=== PATIENT | male | born 1980 | race Caucasian/White ===

== ENCOUNTER 2025-05-07 17:38 | Emergency (ER) | payer OTHER, SELFPAY ==
[2025-05-07 17:45] VITALS: BP 144/74; PULSE 89; TEMP 37.1; O2SAT 99; BMI 26.4
--- NOTE | 2025-05-07 21:28 | ED_ITS ---
HPI HPI - General Adult General Chief complaint: Abdominal Pain Stated complaint: BULDGE THAT COMES OUT IN GUT EVERY ONCE IN AWHILE Time Seen by Provider: 05/07/25 21:25 Source: patient Mode of arrival: walk-in History of Present Illness HPI narrative: left inguinal hernia onset over a year ago. Not sure what it is and finally decided to have it checked . No vomiting. He is able to push it back in. Does have problem with constipation and has been taking MOM for the past year. Related Data Home Medications ?Medication ?Instructions ?Recorded ?Confirmed No Known Home Medications 05/07/2504/14 Allergies Allergy/AdvReac Type Severity Reaction Status Date / Time No Known Drug Allergies Allergy Verified 05/07/25 17:44 Review of Systems ROS Status of ROS 10 or more systems reviewed and unremark able except as noted in history and below PFSH PFSH Social History Little interest or pleasure in doing things: not at all Feeling down, depressed, or hopeless: not at all Exam Constitutional Vital Signs, click to edit/add: Last Vital Signs Temp 98.7 F 05/07/25 17:45 Pulse 89 05/07/25 17:45 Resp 16 05/07/25 17:45 BP 144/74 H 05/07/25 17:45 Pulse Ox 99 05/07/25 17:45 O2 Del Method Room Air 05/07/25 17:45 Common normals: no apparent distress, average body habitus, oriented x3, no limitations, healthy appearing, alert and well nourished [facility] Common normals: normocephalic and head/scalp atraumatic Eye Common normals: PERRL, EOMs intact bilaterally and conjunctivae normal Respiratory Common normals: normal respiratory effort, no retractions, no use of accessory muscles and clear to auscultation bilaterally Cardio Common normals: regular rate, regular rhythm, S1 normal heart sound and S2 normal heart sound GI Common normals: Normal to inspection, nondistended, normoactive bowel sounds present, soft to palpation and non-tender Other: left direct inguinal hernia. soft Extremity Common normals: normal to inspection and full ROM Neuro Common normals: oriented x3, CN's II-XII intact bilaterally, moves all extremities and no focal motor deficits Psych Appearance: grossly normal Course Vital Signs Vital signs: Vital Signs Temperature 98.7 F 05/07/25 17:45 Pulse Rate 89 05/07/25 17:45 Respiratory Rate 16 05/07/25 17:45 Blood Pressure 144/74 H 05/07/25 17:45 Pulse Oximetry 99 05/07/25 17:45 Oxygen Delivery Method Room Air 05/07/25 17:45 Temperature 98.7 F 05/07/25 17:45 Pulse Rate 89 05/07/25 17:45 Respiratory Rate 16 05/07/25 17:45 Blood Pressure 144/74 H 05/07/25 17:45 Pulse Oximetry 99 05/07/25 17:45 Oxygen Delivery Method Room Air 05/07/25 17:45 Medical Decision Making MDM Narrative Medical decision making narrative: presents with bulge left inguinal for over a year and also has constipation. Patient informed he has a hernia. It can be reduced. He is referred to gen. surgery and also advised to use stool softner and miralax for his constipation Discharge Plan Discharge Chief Complaint: Abdominal Pain Clinical Impression: Constipation, Direct left inguinal hernia Patient Disposition: Home, Self-Care Prescriptions / Home Meds: No Action No Known Home Medications Print Language: Venezuelan Instructions: Constipation (ED), Inguinal Hernia (ED) Additional Instructions: use stool softner and miralax for constipation. Call general surgeon to schedule follow up in his/her office
--- OUTSIDE RECORDS SUMMARY | 2025-05-07 21:43 | XMS_ITS | Clinical Summary ---
Author Organization [employer] [facility] tem Address [facility] [id number] [place] [address] Care Team Providers Care Sew Out Operator Name Role Phone No Pcp, No Pcp Primary Care Provider Unavailabl e Allergies No known active allergies Medications No known medications Social History Tobacco UseTypesPacks/DayYears UsedDateSmoking Tobacco: NeverSmokeless Tobacco: Never Tobacco Cessation:Counseling Given: Not Answered Alcohol UseStandard Drinks/WeekCommentsNever0 (1 standard drink = 0.6 oz pure alcohol)ChildcareAnswerDate WojiwhsmTyioklwyoYluitfz94/12/2019EmploymentAnswer Date GyxpgtnnBsyymrjshtKcjacqc43/12/2019Hunger ScreeningAnswerDate Recorded Within the past 12 months we worried whether our food would run out before we got money to buy more.Never True01/19/2023Within the past 12 months the food we bought just didn't last and we didn't have money to get more.Never True 01/19/2023Sex and Gender InformationValueDate RecordedSex Assigned at BirthMale 12/02/2022 5:55 PM EDTLegal EluDzet5508/01/2015 11:08 AM ESTGender IdentityMale 12/02/2022 5:55 PM EDTSexual OrientationChoose not to /22/2023 5:55 PM EDT Last Filed Vital Signs Vital SignReadingTime TakenCommentsBlood Izhgmoqy581/8101/19/2023 4:52 AM EDT Rkpzk045701/19/2023 4:52 AM BQDYuzdpbboepy70.1 ??C (98.8 ??F)01/19/2023 3:27 AM EDTRespiratory Hlky6074 4:37 PM EDTOxygen Leajvxdkyt37%01/19/2023 4:52 AM EDTInhaled Oxygen Concentration--Wwuesg914.9 kg (240 lb)01/19/2023 3:27 AM JVTFzldoi771 cm (6' 2 )01/19/2023 3:27 AM EDTBody Mass Index30.8101/19/2023 3:27 AM EDT Plan of Treatment Health MaintenanceDue DateLast DoneCommentsDepression Gfyrhhtbs68/26/1994Tobacco Uitnzeegy07/26/1994DTaP,Tdap and Td Vaccines (1 - Tdap)2001Adult BMI Gvqibtnvv47Influenza Oyqpeza7402/11/2025 Medical Devices Not on file Insurance Care Teams Team MemberRelationshipSpecialtyStart DateEnd Date [place], [place] [id number] [facility]
--- OUTSIDE RECORDS SUMMARY | 2025-05-07 21:43 | XMS_ITS | Clinical Summary ---
Author Organization [facility] Address [address] [place] [address] Care Team Providers Care Manager Pharmacy Name Role Phone None, Provided MD Primary Care Provider Unavaila ble Allergies No known active allergies Medications No known medications Active Problems ProblemNoted DateDiagnosed DateClosed bicondylar fracture of right tibial zgvttqm1710/25/2022losed fracture of right tibial plateau, initial encounter 10/18/2022 Social History Tobacco UseTypesPacks/DayYears UsedDateSmoking Tobacco: NeverSmokeless Tobacco: Never Tobacco Cessation:Counseling Given: Not Answered Alcohol UseStandard Drinks/WeekCommentsNot Currently0 (1 standard drink = 0.6 oz pure alcohol)Humiliation, Afraid, Rape, and Kick questionnaireAnswerDate RecordedWithin the last year, have you been afraid of your partner or ex-partner?No01/07/2023Within the last year, have you been humiliated or emotionally abused in other ways by your partner or ex-partner?No01/07/2023 Within the last year, have you been kicked, hit, slapped, or otherwise physically hurt by your partner or ex-partner?No01/07/2023Within the last year, have you been raped or forced to have any kind of sexual activity by your part ner or ex-partner?No01/07/2023Overall Financial Resource Strain (CARDIA)Answer Date RecordedHow hard is it for you to pay for the very basics like food, housing, medical care, and heating?Not hard at all10/25/2022HQ-2AnswerDate RecordedPatient Health Questionnaire-2 Cbzzg286UT Safety & Environment AnswerDate RecordedWithin the last year, have you been afraid of your partner or ex-partner?No01/07/2023Within the last year, have you been humiliated or emotionally abused in other ways by your partner or ex-partner?No01/07/2023 Within the last year, have you been kicked, hit, slapped, or otherwise physically hurt by your partner or ex-partner?No01/07/2023Within the last year, have you been raped or forced to have any kind of sexual activity by your part ner or ex-partner?No01/07/2023hysically or Sexually AbusedNot on file01/07/2023 TransportationAnswerDate RecordedIn the past 12 months, has lack of transportation kept you from medical appointments or from getting medications?No 10/25/2022Lack of Transportation (Non-Medical)Not on file10/25/2022Housing Stability Vital SignAnswerDate RecordedUnable to Pay for Housing in the Last YearNot on file10/25/2022Number of Places Lived in the Last YearNot on file 10/25/2022In the last 12 months, was there a time when you did not have a steady place to sleep or slept in [place] (including now)?No10/25/2022Hunger Vital SignAnswerDate RecordedWithin the past 12 months, you worried that your food would run out before you got the money to buymore.Never true10/25/2022Ran Out of Food in the Last YearNot on file10/25/2022Sex and Gender InformationValueDate RecordedSex Assigned at BirthNot on fileLegal MtfTxul7110/18/2022 3:28 PM EDT Gender IdentityNot on fileSexual OrientationNot on file Last Filed Vital Signs Vital SignReadingTime TakenCommentsBlood Xyvftkam222/9008 12:53 PM EDT Uzhpu2027 12:53 PM VQEQusbikxegym59.8 ??C (98.2 ??F)01/15/2023 12:53 PM EDTRespiratory Zpgg5285 12:53 PM EDTOxygen Nxnrhfmbzc98%01/15/2023 12:53 PM EDTInhaled Oxygen Concentration--Doylqs883 kg (240 lb)02/18/2023 9:11 AM EDT Blsulj814.4 cm (6' 1 )01/15/2023 12:53 PM EDTBody Mass Index31.66001/15/2023 12:53 PM EDT Plan of Treatment Health MaintenanceDue DateLast DoneCommentsDepression Yltphhffw13/26/1994 Varicella Vaccines (1 of 2 - 13+ 2-dose series)1995Hepatitis B Vaccines (1 of 3 - 19+ 3-dose series)2001Adult Btmijwt8802/06/2004HPV Vaccines (1 - 3- dose SCDM series)2009COVID-19 Vaccine ( - season)2025 Influenza Vaccine (#1)2025Zoster Vaccines (1 of 2)02/06/2032HIB Vaccines Aged OutNo longer eligible based on patient's age to complete this topicIPV VaccinesAged OutNo longer eligible based on patient's age to complete this topic Meningococcal B VaccineAged OutNo longer eligible based on patient's age to complete this topicMeningococcal VaccineAged OutNo longer eligible based on patient's age to complete this topicPneumococcal Vaccine: Pediatrics (0 to 5 Years) and At-Risk Patients (6 to 64 Years)Aged OutNo longer eligible based on patient's age to complete this topicRotavirus VaccinesAged OutNo longer eligible based on patient's age to complete this topic Medical Devices ImplantedTypeAreaManufacturerDevice IdentifierShelf Expiration DateModel / Serial / LotPlatePlateLeft: FacePlate,T,Lcp,Rt Ang,8-H,67mm - [id number] Implanted:Qty: 1 on 10/25/2022 by [facility]: Jaziel/ESTHER [id number] / / Plate 4h/Rt 93m,3.5m - [id number] Implanted:Qty: 1 on 10/25/2022 by Anuj [facility]inton [facility]: Jaziel/ESTHER [id number] / / Adapt-Plate,2.7m,12 Hole,97m - [id number] Implanted:Qty: 1 on 10/25/2022 by Anuj Hinton [facility]Right: TibiaJOHNSON/ESTHER [id number] / / Screw,Cortex,Slf-Tap,3.5x75mm - [id number] Implanted:Qty: 1 on 10/25/2022 [facility]: TibiaJOHNSON/ESTHER [id number] / / Screw/Slf-Tpng/Strdrv/75m,3.5m - [id number] Implanted:Qty: 1 on 10/25/2022 by [facility]: TibiaJOHNSON/ESTHER [id number] / / Screw,2.7m,T8,50m - [id number] Implanted:Qty: 1 on 10/25/2022 by [facility]: TibiaJOHNSON/ESTHER [id number] / / Screw,2.7m,T8,60m - [id number] Implanted:Qty: 2 on 10/25/2022 by [facility]uj [facility]inton [facility]: TibiaJOHNSON/ESTHER [id number] / / Screw,Cortex,Selftap,3.5x34mm - [id number] Implanted:Qty: 1 on 10/25/2022 by [facility]uj [facility]inton [facility]: TibiaJOHNSON/ESTHER [id number] / / Screw,Cortex,Selftap,3.5x36mm - [id number] Implanted:Qty: 1 on 10/25/2022 by [facility]uj [facility]inton [facility]: TibiaJOHNSON/ESTHER [id number] / / Screw,Cortex,Selftap,3.5x40mm - [id number] Implanted:Qty: 1 on 10/25/2022 by [facility]uj [facility]inton [facility]: TibiaJOHNSON/ESTHER [id number] / / Screw,Cortex,Selftap,3.5x50mm - [id number] Implanted:Qty: 1 on 10/25/2022 by [facility]uj [facility]: TibiaJOHNSON/ESTHER [id number] / / Screw,Cortex,Selftap,3.5x38mm - [id number] Implanted:Qty: 2 on 10/25/2022 by [facility]uj [facility]: TibiaJOHNSON/ESTHER [id number] / / Insurance Advance Directives * Full Code (Latest Code Status on File) Date ActivatedDate InactivatedComments10/25/2022 11:37 AM10/26/2022 4:44 PM * Full Code Date ActivatedDate InactivatedComments10/18/2022 9:06 PM10/19/2022 8:39 PM Care Teams Team MemberRelationshipSpecialtyStart DateEnd Date None, MD Charleen PCP - General01/07/23
--- OUTSIDE RECORDS SUMMARY | 2025-05-07 21:43 | XMS_ITS | Clinical Summary ---
Author Organization [facility] Address [address], [address] [place] [address] Care Team Providers Care Comic Writer Name Role Phone Unavailable Primary Care Provider Unavailabl e Allergies No known active allergies Medications MedicationSigDispense QuantityRefillsLast FilledStart DateEnd DateStatus lacosamide (VIMPAT) 100 MG TABS tablet Indications:Seizures (HCC)Take 1 tablet by mouth 2 times daily for 30 days. Max Daily Amount: 200 mg 60 tablet 01/24/2023ctive risperiDONE (RISPERDAL) 1 MG tablet Take 1 tablet by mouth 2 times daily 60 tablet ctive ibuprofen (ADVIL;MOTRIN) 600 MG tablet Take 1 tablet by mouth 3 times daily as needed for Pain 21 tablet 01/24/2023ctive Active Problems ProblemNoted DateDiagnosed QsffEkospklm34/10/0966Kyvreeole25/10/2023 Social History Tobacco UseTypesPacks/DayYears UsedDateSmoking Tobacco: Never AssessedAUDIT-C AnswerDate RecordedQ1: How often do you have a drink containing alcohol?Never 01/19/2023Q2: How many drinks containing alcohol do you have on a typical day when you are drinking?Patient does not drink01/19/2023Q3: How often do you have six or more drinks on one occasion?Never01/19/2023Interpersonal Safety Domain Source: IP Abuse ScreeningAnswerDate RecordedRead-Only, Retired: Physical Abuse Yzvmef0501/19/2023Read-Only, Retired: Verbal ImyjpKdbgtt74/09/2023Read-Only, Retired: Emotional pyncaXwlbbv85/09/2023Read-Only, Retired: Financial Abuse Zyulff9901/19/2023Read-Only, Retired: Sexual welkaUdlrpr68/09/2023Sex and Gender InformationValueDate RecordedSex Assigned at BirthNot on fileLegal SexMale 07/23/2012 11:31 AM ESTGender IdentityNot on fileSexual OrientationNot on file Last Filed Vital Signs Vital SignReadingTime TakenCommentsBlood Rxxjzxop415/7901/24/2023 12:01 PM EDT Jqjay842501/24/2023 12:01 PM YDPXsgdjhojuik80.7 ??C (98.1 ??F)01/24/2023 12:01 PM EDTRespiratory Bwcm155201/24/2023 12:01 PM EDTOxygen Yoljtaoajy98%01/24/2023 12:01 PM EDTInhaled Oxygen Concentration--Lpxdfu409.4 kg (280 lb 13.9 oz)01/20/2023 11:00 PM PIBEmnbii019 cm (6' 2 )01/19/2023 11:51 PM EDTBody Mass Index36.06 01/19/2023 11:51 PM EDT Plan of Treatment Health MaintenanceDue DateLast DoneCommentsDepression Yxjjim1902/05/1994Varicella vaccine (1 of 2 - 13+ 2-dose series)1995HIV qdyrrt0902/05/1997Hepatitis C zgzhfi4302/06/2000DTaP/Tdap/Td vaccine (1 - Tdap)2001Hepatitis B vaccine (1 of 3 - 19+ 3-dose series)02/05/20015836Wmbjdt78/26/2022Flu vaccine (#1)01/11/2025 COVID-19 Vaccine ( - season)2025HPV vaccine (No Doses Required) CompletedHepatitis A vaccineAged OutNo longer eligible based on patient's age to complete this topicHib vaccineAged OutNo longer eligible based on patient's age to complete this topicMeningococcal (ACWY) vaccineAged OutNo longer eligible based on patient's age to complete this topicMeningococcal B vaccineAged OutNo longer eligible based on patient's age to complete this topicPneumococcal 0-49 years VaccineAged OutNo longer eligible based on patient's age to complete this topicPolio vaccineAged OutNo longer eligible based on patient's age to complete this topic Insurance Advance Directives * Full Code (Latest Code Status on File) Date ActivatedDate InactivatedComments01/20/2023 5:18 AM01/24/2023 7:19 PM
--- NOTE | 2025-05-07 21:45 | PC.NURSE ---
i gave this patient verbal and written discharge orders along with 2 general surgeon names to follow up with, this patient voices yes to understanding these discharge orders and to follow up with 1 of these surgeons this patient shows no signs of distress
== END 2025-05-07 21:44 | disposition home or self-care (01) ==
PROVIDERS: Emergency Provider Internal Medicine
DX: K40.90 Unilateral inguinal hernia, without obstruction or gangrene, not specified as recurrent (principal); K59.00 Constipation, unspecified
CPT/HCPCS: 99281

== ENCOUNTER 2025-05-28 09:39 | Outpatient (OUT) | payer OTHER, SELFPAY ==
--- OUTSIDE RECORDS SUMMARY | 2025-05-28 09:44 | XMS_ITS | Clinical Summary ---
Author Organization [employer] [facility] tem Address [facility] [id number] [place] [address] Care Team Providers Care Family Practice Nurse Practitioner Name Role Phone No Pcp, No Pcp Primary Care Provider Unavailabl e Allergies No known active allergies Medications No known medications Social History Tobacco UseTypesPacks/DayYears UsedDateSmoking Tobacco: NeverSmokeless Tobacco: Never Tobacco Cessation:Counseling Given: Not Answered Alcohol UseStandard Drinks/WeekCommentsNever0 (1 standard drink = 0.6 oz pure alcohol)ChildcareAnswerDate XuyguausPpeaiwjyuZddmxew05/12/2019EmploymentAnswer Date IopmpautBhgyevftsfNngdune19/12/2019Hunger ScreeningAnswerDate Recorded Within the past 12 months we worried whether our food would run out before we got money to buy more.Never True01/19/2023Within the past 12 months the food we bought just didn't last and we didn't have money to get more.Never True 01/19/2023Sex and Gender InformationValueDate RecordedSex Assigned at BirthMale 12/02/2022 5:55 PM EDTLegal FwoNjne3608/01/2015 11:08 AM ESTGender IdentityMale 12/02/2022 5:55 PM EDTSexual OrientationChoose not to uqtlhagb63/22/2023 5:55 PM EDT Last Filed Vital Signs Vital SignReadingTime TakenCommentsBlood Xxcfuxhx254/8101/19/2023 4:52 AM EDT Lapvd354701/19/2023 4:52 AM RELJlycglqhsun07.1 ??C (98.8 ??F)01/19/2023 3:27 AM EDTRespiratory Huur9995 4:37 PM EDTOxygen Yplgmgmhfo64%01/19/2023 4:52 AM EDTInhaled Oxygen Concentration--Fprgen138.9 kg (240 lb)01/19/2023 3:27 AM NVRXewncu958 cm (6' 2 )01/19/2023 3:27 AM EDTBody Mass Index30.8101/19/2023 3:27 AM EDT Plan of Treatment Health MaintenanceDue DateLast DoneCommentsDepression Wlgrsxqof19/26/1994Tobacco Preykewoe45/26/1994DTaP,Tdap and Td Vaccines (1 - Tdap)2001Adult BMI Oqgthwnix61Influenza Taizyqe9102/11/2025 Medical Devices Not on file Insurance Care Teams Team MemberRelationshipSpecialtyStart DateEnd Date [place], [place] [address] [facility]
--- OUTSIDE RECORDS SUMMARY | 2025-05-28 09:44 | XMS_ITS | Clinical Summary ---
Author Organization [facility] Address [address], [address] [place] [address] Care Team Providers Care Police Commissioner Name Role Phone Unavailable Primary Care Provider [...] 21 tablet 01/24/2023ctive Active Problems ProblemNoted DateDiagnosed XbhgBigktdrd12/10/8138Ziqgeasfa78/10/2023 Social History Tobacco UseTypesPacks/DayYears UsedDateSmoking Tobacco: Never AssessedAUDIT-C AnswerDate RecordedQ1: How often do you have a drink containing alcohol?Never 01/19/2023Q2: How many drinks containing alcohol do you have on a typical day when you are drinking?Patient does not drink01/19/2023Q3: How often do you have six or more drinks on one occasion?Never01/19/2023Interpersonal Safety Domain Source: IP Abuse ScreeningAnswerDate RecordedRead-Only, Retired: Physical Abuse Qvfami0401/19/2023Read-Only, Retired: Verbal GiwdwLydelg26/09/2023Read-Only, Retired: Emotional xpxkgGisnhj03/09/2023Read-Only, Retired: Financial Abuse Diggvv7901/19/2023Read-Only, Retired: Sexual rjyzfAexddu83/09/2023Sex and Gender InformationValueDate RecordedSex Assigned at BirthNot on fileLegal SexMale 07/23/2012 11:31 AM ESTGender IdentityNot on fileSexual OrientationNot on file Last Filed Vital Signs Vital SignReadingTime TakenCommentsBlood Ddilwaap408/7901/24/2023 12:01 PM EDT Xmecp911201/24/2023 12:01 PM GADHgcgkyhcpil83.7 ??C (98.1 ??F)01/24/2023 12:01 PM EDTRespiratory Edph033001/24/2023 12:01 PM EDTOxygen Dyafirvmxv45%01/24/2023 12:01 PM EDTInhaled Oxygen Concentration--Ptckng728.4 kg (280 lb 13.9 oz)01/20/2023 11:00 PM KIHPvejuc102 cm (6' 2 )01/19/2023 11:51 PM EDTBody Mass Index36.06 01/19/2023 11:51 PM EDT Plan of Treatment Health MaintenanceDue DateLast DoneCommentsDepression Iooazw0202/05/1994Varicella vaccine (1 of 2 - 13+ 2-dose series)1995HIV apgzew6802/05/1997Hepatitis C llihmy0802/06/2000DTaP/Tdap/Td vaccine (1 - Tdap)2001Hepatitis B vaccine (1 of 3 - 19+ 3-dose series)02/05/20013146Vqkkgh08/26/2022Flu vaccine (#1)01/11/2025 COVID-19 Vaccine ( - season)2025HPV [...]
--- OUTSIDE RECORDS SUMMARY | 2025-05-28 09:44 | XMS_ITS | Clinical Summary ---
Author Organization [facility] Address [address] [place] [address] Care Team Providers Care Architectural Design Lecturer Name Role Phone None, Provided MD Primary Care Provider Unavaila ble Allergies No known active allergies Medications No known medications Active Problems ProblemNoted DateDiagnosed DateClosed bicondylar fracture of right tibial emejtgw0610/25/2022losed fracture of right tibial plateau, initial encounter [...] heating?Not hard at all10/25/2022HQ-2AnswerDate RecordedPatient Health Questionnaire-2 Xykmb097UT Safety & Environment AnswerDate RecordedWithin the last [...] steady place to sleep or slept in pack[place]elter (including now)?No10/25/2022Hunger Vital SignAnswerDate RecordedWithin the past 12 months, you worried that your food would run out before you got the money to buymore.Never true10/25/2022Ran Out of Food in the Last YearNot on file10/25/2022Sex and Gender InformationValueDate RecordedSex Assigned at BirthNot on fileLegal WbkIjsu9210/18/2022 3:28 PM EDT Gender IdentityNot on fileSexual OrientationNot on file Last Filed Vital Signs Vital SignReadingTime TakenCommentsBlood Huqytdnm154/9008 12:53 PM EDT Rodml2649 12:53 PM PGBPkrwpqbyzdp51.8 ??C (98.2 ??F)01/15/2023 12:53 PM EDTRespiratory Yetc7929 12:53 PM EDTOxygen Dpnoguuffi19%01/15/2023 12:53 PM EDTInhaled Oxygen Concentration--Oqfqqb313 kg (240 lb)02/18/2023 9:11 AM EDT Vbyujn371.4 cm (6' 1 )01/15/2023 12:53 PM EDTBody Mass Index31.66001/15/2023 12:53 PM EDT Plan of Treatment Health MaintenanceDue DateLast DoneCommentsDepression Zcssjgckj88/26/1994 Varicella Vaccines (1 of 2 - 13+ 2-dose series)1995Hepatitis B Vaccines (1 of 3 - 19+ 3-dose series)2001Adult Svfrdhd6102/06/2004HPV Vaccines (1 - 3- dose SCDM series)2009COVID-19 [...] / Serial / LotPlatePlateLeft: FacePlate,T,Lcp,Rt Ang,8-H,67mm - [id number] Implanted:Qty: 1 [facility] 10[facility]25[facility]20[facility] Jaziel/ESTHER [id number] / / Plate 4h/Rt 93m,3.5m - [id number] Implanted:Qty: 1 on 10/25/2022 [facility] Jaziel/ESTHER [id number] / / Adapt-Plate,2.7m,12 Hole,97m - [id number] Implanted:Qty: 1 on 10/25/2022 [facility]: TibiaJOHNSON/ESTHER [id number] / / Screw,Cortex,Slf-Tap,3.5x75mm - [id number] Implanted:Qty: 1 on 10/25/2022 [facility] TibiaJOHNSON/ESTHER [id number] / / Screw/Slf-Tpng/Strdrv/75m,3.5m - [id number] Implanted:Qty: 1 on 10/25/2022 [facility]: TibiaJOHNSON/ESTHER ORTHO02.127.175 / / Screw,2.7m,T8,50m - [id number] Implanted:Qty: 1 on 10/25/2022 [facility]: TibiaJOHNSON/ESTHER [id number] / / Screw,2.7m,T8,60m - [id number] Implanted:Qty: 2 on 10/25/2022 by [facility]: TibiaJOHNSON/ESTHER [id number] / / Screw,Cortex,Selftap,3.5x34mm - [id number] Implanted:Qty: 1 on 10/25/2022 by [facility]: TibiaJOHNSON/ESTHER [id number] / / Screw,Cortex,Selftap,3.5x36mm - [id number] Implanted:Qty: 1 on 10/25/2022 by [facility]: TibiaJOHNSON/ESTHER [id number] / / Screw,Cortex,Selftap,3.5x40mm - [id number] Implanted:Qty: 1 on 10/25/2022 by [facility]: TibiaJOHNSON/ESTHER [id number] / / Screw,Cortex,Selftap,3.5x50mm - [id number] Implanted:Qty: 1 on 10/25/2022 by [facility]: TibiaJOHNSON/ESTHER [id number] / / Screw,Cortex,Selftap,3.5x38mm - [id number] Implanted:Qty: 2 on 10/25/2022 by [facility]: TibiaJOHNSON/ESTHER [id number] / / Insurance Advance Directives * Full Code (Latest Code Status on File) Date ActivatedDate InactivatedComments10/25/2022 11:37 AM10/26/2022 4:44 PM * Full Code Date ActivatedDate InactivatedComments10/18/2022 9:06 PM10/19/2022 8:39 PM Care Teams Team MemberRelationshipSpecialtyStart DateEnd Date None, MD Charleen PCP - General01/07/23
== END 2025-05-28 09:40 | disposition home or self-care (01) ==
LOC: PST 09:40
PROVIDERS: Visit Provider Surgery
DX: Z01.818 Encounter for other preprocedural examination (principal); K40.90 Unilateral inguinal hernia, without obstruction or gangrene, not specified as recurrent

== ENCOUNTER 2025-06-12 08:55 | Day surgery (SDC) | payer OTHER, SELFPAY ==
[2025-05-28 10:19] VITALS: BP 127/68; PULSE 92; TEMP 36.6; O2SAT 99; BMI 27.1
[2025-06-12] VITALS (12 sets, daily range): BP systolic 106–150; BP diastolic 68–106; PULSE 64–84; TEMP 36.5–36.9; O2SAT 96–100; BMI 27.0
--- NOTE | 2025-06-12 | OP_ITS ---
OPERATION DATE: 06/12/2025 PREOPERATIVE DIAGNOSIS: Reducible left inguinal hernia. POSTOPERATIVE DIAGNOSIS: Reducible left inguinal hernia with indirect left inguinal hernia and cord lipoma. PROCEDURE: Left inguinal herniorrhaphy with mesh patch insertion. SURGEON: Clark Uribe M.D. ANESTHESIA: General with laryngeal mask airway, as well as left sided TAP block. ESTIMATED BLOOD LOSS: Less than 10 mL. INDICATIONS AND CONSENT: Patient is a 45-year-old male with a history of enlarging, symptomatic, reducible left inguinal hernia. Indications, risks, benefits, alternatives of proceeding with herniorrhaphy with mesh insertion were explained extensively to the patient, including the risks of bleeding, infection, scarring, pain, nerve injury, testicular injury, blood clot, pulmonary embolus, heart attack, anesthetic complication, need for further surgery or mesh removal. All of his questions were answered. Informed consent was obtained. PROCEDURE: Patient brought to the operating room, placed in the supine position. General anesthesia was induced. Left sided TAP block was performed. The patient was prepped and draped in the usual sterile fashion. Left groin incision was made in the area of the skin crease, above the external inguinal ring, carried down through subcutaneous tissue using sharp dissection as well as electrocautery. Ramiro?s fascia was divided. The external oblique was opened along the direction of its fibers, down to the external inguinal ring. It was noted to be attenuated. Cord structures were mobilized and retracted with the [place] drain. There was noted to be a small indirect sac, as well as a cord lipoma that was freed up from the cord structures, all the up to the internal ring, where it was then reduced. The enlarged internal ring was then closed using a 2-0 Prolene suture. The wound was irrigated. There was no evidence of direct inguinal hernia. A ProGrip patch was then used and was placed in the floor of the inguinal canal. The arms were placed around the cord structures. It was then secured circumferentially using interrupted 3-0 Vicryl sutures. Care was taken to avoid undue tension on the cord structures. The nerves were out of the area of the sutures. The wound was then irrigated. There was good hemostasis. The external oblique was then closed with a running 3-0 Vicryl suture. It was noted to be very attenuated. 10 cc of 0.25% Marcaine was then injected into the subcutaneous tissues. Ramiro?s fascia was re-approximated with interrupted 3-0 Monocryl suture. The skin was then closed with a running 4-0 subcuticular Monocryl suture, as well as skin glue. Sponge and needle counts were correct x2 per nursing personnel. The patient tolerated procedure well, was extubated and sent to recovery room in good condition. CC: Patient?s Family Physician NASRA
--- OUTSIDE RECORDS SUMMARY | 2025-06-12 09:00 | XMS_ITS | Clinical Summary ---
Author Organization [facility] tem Address [id number] [place] [address] Care Team Providers Care Broadcast Correspondent Name Role Phone No Pcp, No Pcp Primary Care Provider Unavailabl e Allergies No known active allergies Medications No known medications Social History Tobacco UseTypesPacks/DayYears UsedDateSmoking Tobacco: NeverSmokeless Tobacco: Never Tobacco Cessation:Counseling Given: Not Answered Alcohol UseStandard Drinks/WeekCommentsNever0 (1 standard drink = 0.6 oz pure alcohol)ChildcareAnswerDate BtgrzkkdXflrqfdeoKqgzfck48/12/2019EmploymentAnswer Date XfsnbgtwTezdocvfcqWghkhgj21/12/2019Hunger ScreeningAnswerDate Recorded Within the past 12 months we worried whether our food would run out before we got money to buy more.Never True01/19/2023Within the past 12 months the food we bought just didn't last and we didn't have money to get more.Never True 01/19/2023Sex and Gender InformationValueDate RecordedSex Assigned at BirthMale 12/02/2022 5:55 PM EDTLegal AmvWryw3708/01/2015 11:08 AM ESTGender IdentityMale 12/02/2022 5:55 PM EDTSexual OrientationChoose not to hxpezbrb46/22/2023 5:55 PM EDT Last Filed Vital Signs Vital SignReadingTime TakenCommentsBlood Lauslgjr531/8101/19/2023 4:52 AM EDT Xhbop048801/19/2023 4:52 AM WFMYdmrwheqyts10.1 ??C (98.8 ??F)01/19/2023 3:27 AM EDTRespiratory Plna2094 4:37 PM EDTOxygen Hkoxhpnhgb65%01/19/2023 4:52 AM EDTInhaled Oxygen Concentration--Buxjbw084.9 kg (240 lb)01/19/2023 3:27 AM NRSVudeus999 cm (6' 2 )01/19/2023 3:27 AM EDTBody Mass Index30.8101/19/2023 3:27 AM EDT Plan of Treatment Health MaintenanceDue DateLast DoneCommentsDepression Pephelrya70/26/1994Tobacco Kaezbsfdw34/26/1994DTaP,Tdap and Td Vaccines (1 - Tdap)2001Adult BMI Tzaejaizj80Influenza Wcipkni5502/11/2025 Medical Devices Not on file Insurance Care Teams Team MemberRelationshipSpecialtyStart DateEnd Date No Pcp, [place] [address] [facility]
--- OUTSIDE RECORDS SUMMARY | 2025-06-12 09:00 | XMS_ITS | Clinical Summary ---
Author Organization [facility] Address [address], [address] [place] [address] Care Team Prov[address] Care [address] Light Wirer Name Role Phone Unavailable Primary Care Provider [...] 21 tablet 01/24/2023ctive Active Problems ProblemNoted DateDiagnosed CuplFggpgpao17/10/0494Acxoyxybn65/10/2023 Social History Tobacco UseTypesPacks/DayYears UsedDateSmoking Tobacco: Never AssessedAUDIT-C AnswerDate RecordedQ1: How often do you have a drink containing alcohol?Never 01/19/2023Q2: How many drinks containing alcohol do you have on a typical day when you are drinking?Patient does not drink01/19/2023Q3: How often do you have six or more drinks on one occasion?Never01/19/2023Interpersonal Safety Domain Source: IP Abuse ScreeningAnswerDate RecordedRead-Only, Retired: Physical Abuse Neoipf8601/19/2023Read-Only, Retired: Verbal XudbaZsmkkw43/09/2023Read-Only, Retired: Emotional qdrktEivdlg14/09/2023Read-Only, Retired: Financial Abuse Kthjbv0801/19/2023Read-Only, Retired: Sexual bnbizRqdtua56/09/2023Sex and Gender InformationValueDate RecordedSex Assigned at BirthNot on fileLegal SexMale 07/23/2012 11:31 AM ESTGender IdentityNot on fileSexual OrientationNot on file Last Filed Vital Signs Vital SignReadingTime TakenCommentsBlood Xxmrtggm260/7901/24/2023 12:01 PM EDT Xwebr016601/24/2023 12:01 PM KNJAyipmlgsmex25.7 ??C (98.1 ??F)01/24/2023 12:01 PM EDTRespiratory Rkpz513301/24/2023 12:01 PM EDTOxygen Yyrupawezi92%01/24/2023 12:01 PM EDTInhaled Oxygen Concentration--Hhqkxe662.4 kg (280 lb 13.9 oz)01/20/2023 11:00 PM TDHZlogcc030 cm (6' 2 )01/19/2023 11:51 PM EDTBody Mass Index36.06 01/19/2023 11:51 PM EDT Plan of Treatment Health MaintenanceDue DateLast DoneCommentsDepression Iwkxgf5402/05/1994Varicella vaccine (1 of 2 - 13+ 2-dose series)1995HIV nldegw4702/05/1997Hepatitis C tzwnml3802/06/2000DTaP/Tdap/Td vaccine (1 - Tdap)2001Hepatitis B vaccine (1 of 3 - 19+ 3-dose series)02/05/20016382Rpifmd88/26/2022Flu vaccine (#1)01/11/2025 COVID-19 Vaccine ( - season)2025HPV [...]
--- OUTSIDE RECORDS SUMMARY | 2025-06-12 09:00 | XMS_ITS | Clinical Summary ---
Author Organization [facility] Address [address] [place] [address] Care Team Providers Care Ditch Inspector Name Role Phone None, Provided MD Primary Care Provider Unavaila ble Allergies No known active allergies Medications No known medications Active Problems ProblemNoted DateDiagnosed DateClosed bicondylar fracture of right tibial xabihao6410/25/2022losed fracture of right tibial plateau, initial encounter [...] heating?Not hard at all10/25/2022HQ-2AnswerDate RecordedPatient Health Questionnaire-2 Qiliz061UT Safety & Environment AnswerDate RecordedWithin the last [...] steady place to sleep or slept in rin[place]ter (including now)?No10/25/2022Hunger Vital SignAnswerDate RecordedWithin the past 12 months, you worried that your food would run out before you got the money to buymore.Never true10/25/2022Ran Out of Food in the Last YearNot on file10/25/2022Sex and Gender InformationValueDate RecordedSex Assigned at BirthNot on fileLegal VdkUsju6510/18/2022 3:28 PM EDT Gender IdentityNot on fileSexual OrientationNot on file Last Filed Vital Signs Vital SignReadingTime TakenCommentsBlood Cxoabexb891/9008 12:53 PM EDT Lwmbk8679 12:53 PM TLXBfroixdqktk39.8 ??C (98.2 ??F)01/15/2023 12:53 PM EDTRespiratory Ovgq0491 12:53 PM EDTOxygen Nryhgzehdt83%01/15/2023 12:53 PM EDTInhaled Oxygen Concentration--Ygzglj024 kg (240 lb)02/18/2023 9:11 AM EDT Yzclym783.4 cm (6' 1 )01/15/2023 12:53 PM EDTBody Mass Index31.66001/15/2023 12:53 PM EDT Plan of Treatment Health MaintenanceDue DateLast DoneCommentsDepression Vyahiqgrw26/26/1994 Varicella Vaccines (1 of 2 - 13+ 2-dose series)1995Hepatitis B Vaccines (1 of 3 - 19+ 3-dose series)2001Adult Sscyaly8402/06/2004HPV Vaccines (1 - 3- dose SCDM series)2009COVID-19 [...] / Serial / LotPlatePlateLeft: FacePlate,T,Lcp,Rt Ang,8-H,67mm - [id number] Implanted:Qty: 1 on 10/25/2022 [facility] Jazile/ESTHER [id number] / / Plate 4h/Rt 93m,3.5m - [id number] Implanted:Qty: 1 on 10/25/2022 [facility] Jaziel/ESTHER [id number] / / Adapt-Plate,2.7m,12 Hole,97m - [id number] Implanted:Qty: 1 on 10/25/2022 by [facility]: TibiaJOHNSON/ESTHER [id number] / / Screw,Cortex,Slf-Tap,3.5x75mm - [id number] Implanted:Qty: 1 on 10/25/2022 [facility]: TibiaJOHNSON/ESTHER [id number] / / Screw/Slf-Tpng/Strdrv/75m,3.5m - [id number] Implanted:Qty: 1 on 10/25/2022 by [facility]: TibiaJOHNSON/ESTHER ORTHO02.127.175 / / Screw,2.7m,T8,50m - [id number] Implanted:Qty: 1 on 10/25/2022 by [facility]: TibiaJOHNSON/ESTHER [id number] / / Screw,2.7m,T8,60m - [id number] Implanted:Qty: 2 on 10/25/2022 by [facility]intno [facility]: TibiaJOHNSON/ESTHER ORPPS581.969 / / Screw,Cortex,Selftap,3.5x34mm - [id number] Implanted:Qty: 1 on 10/25/2022 by [facility]: TibiaJOHNSON/ESTHER [id number] / / Screw,Cortex,Selftap,3.5x36mm - [id number] Implanted:Qty: 1 on 10/25/2022 by [facility]: TibiaJOHNSON/ESTHER [id number] / / Screw,Cortex,Selftap,3.5x40mm - [id number] Implanted:Qty: 1 on 10/25/2022 by [facility]: TibiaJOHNSON/ESTHER [id number] / / Screw,Cortex,Selftap,3.5x50mm - [id number] Implanted:Qty: 1 on 10/25/2022 by [facility]: TibiaJOHNSON/ESTHER [id number] / / Screw,Cortex,Selftap,3.5x38mm - [id number] Implanted:Qty: 2 on 10/25/2022 by [facility] TibiaJOHNSON/ESTHER [id number] / / Insurance Advance Directives * Full Code (Latest Code Status on File) Date ActivatedDate InactivatedComments10/25/2022 11:37 AM10/26/2022 4:44 PM * Full Code Date ActivatedDate InactivatedComments10/18/2022 9:06 PM10/19/2022 8:39 PM Care Teams Team MemberRelationshipSpecialtyStart DateEnd Date None, MD Charleen PCP - General01/07/23
[2025-06-12] MEDS: CEFAZOLIN SODIUM 2 GM/50 ML D5W PREMIX IV (10:34)
[2025-06-12] MEDS: BUPIVACAINE LIPOSOME/PF 266 MG/20 ML VIAL INJ (10:47)
[2025-06-12] MEDS: CEFAZOLIN SODIUM 1,000 MG in 0.9 % SODIUM CHLORIDE 10 ML 10 MG IRR (11:01)
[2025-06-12] MEDS: BUPIVACAINE HCL 0.25% PF 25 MG/10 ML VIAL INJ (11:43)
[2025-06-12] MEDS: OXYCODONE HCL/ACETAMINOPHEN 5MG/325MG 1 TAB PO (12:17)
== END 2025-06-12 13:27 | disposition home or self-care (01) ==
LOC: SURGOUT 08:57
PROVIDERS: Visit Provider Surgery
PROC: (CPT 830; principal; 2025-06-12 10:15)
DX: K40.90 Unilateral inguinal hernia, without obstruction or gangrene, not specified as recurrent (principal); D17.6 Benign lipomatous neoplasm of spermatic cord; Z90.49 Acquired absence of other specified parts of digestive tract; F41.9 Anxiety disorder, unspecified; F20.9 Schizophrenia, unspecified
CPT/HCPCS: 49505; 64488; 94667; C1781; J0665; J0690; J1100; J1200; J1885; J2405; J2704; J3010